=== PATIENT | male | born 1945 | race Caucasian/White ===

== ENCOUNTER 2016-08-29 08:04 | Emergency (ER) | payer MEDICARE, OTHER ==
--- NOTE | 2016-08-29 08:10 | EDM.PDOC ---
ED HPI GENERAL MEDICAL PROBLEM - General Chief Complaint: Chest Pain Stated Complaint: CHEST PAIN [id number] Time Seen by Provider: 08/29/16 08:09 Source of Information: Reports: Patient, Family, RN, RN Notes Reviewed History Limitations: Reports: No Limitations - History of Present Illness INITIAL COMMENTS - FREE TEXT/NARRATIVE: Pt from [place], [place] who came to [place] several days ago to go fishing arrives to ER by POV with report of onset of substernal chest and upper abdominal pain yesterday evening. Pt initially thought it was just indigestion because he normally eat a fairly low fat diet and last evening he had deep fried fish and onion rings. He took TUMS last evening with no relief. This morning the pain persisted and he has had continuous nausea with one episode of emesis. He felt mildly short of breath this morning so he took one Nitroglycerin 0.4mg SL which made him feel tired, but did not completely relieve his pain. He admits to significant increase in lower extremity edema over the past couple of days. Denies rapid or irregular heart rate, wheezing, cough, radiating pain, vomiting, diarrhea, constipation, fever, or chills. He has significant CAD Hx with NM, CABG in 2003, stents x12, and CHF. He also had surgery for colon cancer. 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, Nitroglycerin, Other Medication(s) Chest Pain Score (Numeric/FACES): 8 - Related Data Allergies Allergy/AdvReac Type Severity Reaction Status Date / Time No Known Allergies Allergy Verified 08/29/16 08:13 Home Meds: Home Meds Aspirin [Halfprin] 81 mg PO DAILY 08/29/16 [History] Clopidogrel [Plavix] 75 mg PO DAILY 08/29/16 [History] Docusate Sodium [Colace] 250 mg PO BID 08/29/16 [History] Dulaglutide [Trulicity] 0.75 mg SQ WEEKLY 08/29/16 [History] Ferrous Sulfate [Iron] 325 mg PO TID 08/29/16 [History] Furosemide [Lasix] 40 mg PO DAILY 08/29/16 [History] Loratadine [Claritin] 10 mg PO DAILY 08/29/16 [History] Metoprolol Succinate [Toprol XL] 25 mg PO BID 08/29/16 [History] Multivit-Min/FA/Lycopen/Lutein [Centrum Silver Men Tablet] 1 tab PO DAILY [History] Nitroglycerin [Nitrostat] 0.4 mg BUCCAL PRN 08/29/16 [History] [place]-3/DHA/Epa/Fish Oil [Fish Oil 1,400 MG Softgel] 1,400 mg PO DAILY 08/29/16 [History] Pantoprazole Sodium [Protonix] 40 mg PO DAILY 08/29/16 [History] Potassium Chloride 10 meq PO DAILY 08/29/16 [History] Ranitidine HCl [Zantac] 150 mg PO DAILY 08/29/16 [History] Ranolazine [Ranexa] 1,000 mg PO DAILY 08/29/16 [History] Spironolactone [Aldactone] 12.5 mg PO BID 08/29/16 [History] Tamsulosin [Flomax] 0.4 mg PO PCBREAKFAST 08/29/16 [History] amLODIPine Besylate [Norvasc] 2.5 mg PO BID 08/29/16 [History] atorvaSTATin [Lipitor] 10 mg PO BEDTIME 08/29/16 [History] Past Medical History Cardiovascular History: Reports: Angina, Bypass, CAD, Heart Failure, High Cholesterol, Hypertension, NM, Stents (x12) Endocrine/Metabolic History: Reports: Diabetes, Type II, Obesity/BMI 30+ Hematologic History: Reports: Anemia, Iron Deficiency Oncologic (Cancer) History: Reports: Colon - Past Surgical History Cardiovascular Surgical History: Reports: Coronary Artery Bypass, Coronary Artery Stent GI Surgical History: Reports: Appendectomy, Colon, Colonoscopy Social & Family History - Family History Family Medical History: Noncontributory - Alcohol Use Alcohol Use Frequency: Rarely - Recreational Drug Use Recreational Drug Use: No - Living Situation & Occupation Living situation: Reports: , with Spouse Occupation: Retired ED ROS GENERAL - Review of Systems Review Of Systems: ROS reveals no pertinent complaints other than HPI. ED EXAM, GENERAL - Physical Exam Exam: See Below Exam Limited By: No Limitations General Appearance: Alert, WD/WN, No Apparent Distress, Obese Eye Exam: Bilateral Eye: Normal Inspection Ears: Normal External Exam, Hearing Grossly Normal Nose: Normal Inspection, Normal Mucosa, No Blood Throat/Mouth: Normal Inspection, Normal Lips, Normal Teeth, Normal Gums, Normal Oropharynx, Normal Voice, No Airway Compromise Head: Atraumatic, Normocephalic Neck: Normal Inspection, Supple, Non-Tender, Full Range of Motion. No: Lymphadenopathy (L), Lymphadenopathy (R) Respiratory/Chest: No Respiratory Distress, Lungs Clear, No Accessory Muscle Use , Chest Non-Tender, Decreased Breath Sounds Cardiovascular: Normal Peripheral Pulses, Regular Rate, Rhythm, No Gallop, No Murmur, No Rub, Other (+3 pitting edema at B/L lower extremities to mid-thighs) GI/Abdominal: Normal Bowel Sounds, Soft (obese), No Distention, No Abnormal Bruit, Tender (mild generalized tenderness with acute moderately severe tenderness at the RUQ and epigastric region, well healed surgical scars). No: Guarding, Rigid, Rebound (Male) Exam: Deferred Rectal (Males) Exam: Deferred Back Exam: Normal Inspection, Full Range of Motion Extremities: Normal Range of Motion, Non-Tender, Normal Capillary Refill, Pedal Edema Neurological: Alert, Oriented, CN II-XII Intact, Normal Cognition, Normal Gait, No Motor/Sensory Deficits Psychiatric: Normal Affect, Normal Mood Skin Exam: Warm, Dry, Intact, Normal Color, No Rash EKG INTERPRETATION EKG Date: 08/29/16 Time: 08:10 Rhythm: Other (SR) Rate (Beats/Min): 57 [place]: LAD-Left [place] Deviation P-Wave: Present QRS: Other (inferior Q waves, late transition V5, V6) ST-T: Normal QT: Normal Comparison: NA - No Prior EKG Course - Vital Signs Last Recorded V/S: Last Vital Signs Temp 36.6 C 08/29/16 08:20 Pulse 58 L 08/29/16 08:20 Resp 18 08/29/16 08:20 BP 127/55 L 08/29/16 08:49 Pulse Ox 98 08/29/16 08:20 - Orders/Labs/Meds Orders: Active Orders 24 hr Category Date Time Status EKG 12 Lead [EKG Documentation Completion] [RC] STAT Care 08/29/16 08:15 Active Peripheral IV Care [RC] . DIRECTED Care 08/29/16 08:16 Active Nitroglycerin [Nitrostat] Med 08/29/16 08:14 Active 0.4 mg SL Q5M PRN Sodium Chloride 0.9% [Saline Flush] Med 08/29/16 08:15 Active 10 ml FLUSH ASDIRECTED PRN Peripheral IV Insertion Adult [OM.PC] Stat Oth 08/29/16 08:15 Ordered Medication Orders Nitroglycerin (Nitrostat) 0.4 mg SL Q5M PRN PRN Reason: Chest Pain Last Admin: 08/29/16 08:49 Dose: 0.4 mg Admin: 08/29/16 08:32 Dose: 0.4 mg Sodium Chloride (Saline Flush) 10 ml FLUSH ASDIRECTED PRN PRN Reason: Keep Vein Open Last Admin: 08/29/16 08:30 Dose: 10 ml Labs: Laboratory Tests 08/29/16 08/29/16 08/29/16 Range/Units 08:18 08:18 08:18 WBC 8.2 (5.0-10.0) 10^3/uL RBC 4.40 L (4.6-6.2) 10^6/uL Hgb 13.0 L (14.0-18.0) g/dL Hct 38.7 L (40.0-54.0) % MCV 88.0 (80-100) fL MCH 29.5 (27.0-34.0) pg MCHC 33.6 (33.0-35.0) g/dL Plt Count 199 (150-450) 10^3/uL Neut % (Auto) 63.2 (42.2-75.2) % Lymph % (Auto) 23.7 (20.5-50.1) % [place] % (Auto) 12.3 H (2-8) % Eos % (Auto) 0.4 L (1.0-3.0) % Baso % (Auto) 0.4 (0.0-1.0) % PT 10.0 (9.0-12.0) SEC INR 1.0 (0.9-1.2) APTT 25.5 (22.0-34.0) SEC Sodium 138 (135-145) mmol/L Potassium 3.9 (3.6-5.0) mmol/L Chloride 105 (101-111) mmol/L Carbon Dioxide 23.0 (21.0-31.0) mmol/L Anion Gap 13.9 BUN 23 H (7-18) mg/dL Creatinine 1.3 (0.6-1.3) mg/dL Est Cr Clr Drug Dosing 54.71 mL/min Estimated GFR (MDRD) 54 BUN/Creatinine Ratio 17.69 Glucose 163 H (74-105) mg/dL Calcium 8.9 (8.4-10.2) mg/dl Total Bilirubin 0.7 (0.2-1.0) mg/dL AST 20 (10-42) IU/L ALT 18 (10-60) IU/L Alkaline Phosphatase 66 (42-121) IU/L Troponin I < 0.02 (0.00-0.02) ng/ml B-Natriuretic Peptide 193 H (0-100) pg/ml Total Protein 7.2 (6.7-8.2) g/dl Albumin 3.6 (3.2-5.5) g/dl Globulin 3.6 Albumin/Globulin Ratio 1.00 Amylase 51 (28-100) U/L Lipase 25 (22-51) U/L Urine Color (YELLOW) Urine Appearance (CLEAR) Urine pH (5.0-9.0) Ur Specific [place] (1.005-1.030) Urine Protein (NEGATIVE) Urine Glucose (UA) (NEGATIVE) Urine Ketones (NEGATIVE) Urine Occult Blood (NEGATIVE) Urine Nitrite (NEGATIVE) Urine Bilirubin (NEGATIVE) Urine Urobilinogen (0.2-1.0) mg/dL Ur Leukocyte Esterase (NEGATIVE) Urine RBC /HPF Urine WBC (0-5/HPF) /HPF Ur Epithelial Cells /HPF Urine Bacteria (0-FEW/HPF) /HPF Urine Mucus /LPF 08/29/16 Range/Units 10:00 WBC (5.0-10.0) 10^3/uL RBC (4.6-6.2) 10^6/uL Hgb (14.0-18.0) g/dL Hct (40.0-54.0) % MCV (80-100) fL MCH (27.0-34.0) pg MCHC (33.0-35.0) g/dL Plt Count (150-450) 10^3/uL Neut % (Auto) (42.2-75.2) % Lymph % (Auto) (20.5-50.1) % [place] % (Auto) (2-8) % Eos % (Auto) (1.0-3.0) % Baso % (Auto) (0.0-1.0) % PT (9.0-12.0) SEC INR (0.9-1.2) APTT (22.0-34.0) SEC Sodium (135-145) mmol/L Potassium (3.6-5.0) mmol/L Chloride (101-111) mmol/L Carbon Dioxide (21.0-31.0) mmol/L Anion Gap BUN (7-18) mg/dL Creatinine (0.6-1.3) mg/dL Est Cr Clr Drug Dosing mL/min Estimated GFR (MDRD) BUN/Creatinine Ratio Glucose (74-105) mg/dL Calcium (8.4-10.2) mg/dl Total Bilirubin (0.2-1.0) mg/dL AST (10-42) IU/L ALT (10-60) IU/L Alkaline Phosphatase (42-121) IU/L Troponin I (0.00-0.02) ng/ml B-Natriuretic Peptide (0-100) pg/ml Total Protein (6.7-8.2) g/dl Albumin (3.2-5.5) g/dl Globulin Albumin/Globulin Ratio Amylase (28-100) U/L Lipase (22-51) U/L Urine Color Yellow (YELLOW) Urine Appearance Clear (CLEAR) Urine pH 6.0 (5.0-9.0) Ur Specific [place] 1.015 (1.005-1.030) Urine Protein Negative (NEGATIVE) Urine Glucose (UA) Negative (NEGATIVE) Urine Ketones Negative (NEGATIVE) Urine Occult Blood Negative (NEGATIVE) Urine Nitrite Negative (NEGATIVE) Urine Bilirubin Negative (NEGATIVE) Urine Urobilinogen 0.2 (0.2-1.0) mg/dL Ur Leukocyte Esterase Negative (NEGATIVE) Urine RBC Not seen /HPF Urine WBC Not seen (0-5/HPF) /HPF Ur Epithelial Cells Rare /HPF Urine Bacteria Not seen (0-FEW/HPF) /HPF Urine Mucus Not seen /LPF Meds: Medications Generic Name Dose Route Start Last Admin Trade Name Freq PRN Reason Stop Dose Admin Nitroglycerin 0.4 mg 08/29/16 08:14 08/29/16 08:49 Nitrostat SL 0.4 mg Q5M PRN Administration Chest Pain Sodium Chloride 10 ml 08/29/16 08:15 08/29/16 08:30 Saline Flush FLUSH 10 ml ASDIRECTED PRN Administration Keep Vein Open Discontinued Medications Generic Name Dose Route Start Last Admin Trade Name Freq PRN Reason Stop Dose Admin Aspirin 324 mg 08/29/16 08:14 08/29/16 08:32 Aspirin PO 08/29/16 08:15 324 mg ONETIME ONE Administration Furosemide 40 mg 08/29/16 09:12 08/29/16 09:16 Lasix IVPUSH 08/29/16 09:13 40 mg NOW ONE Administration Hydromorphone HCl 1 mg 08/29/16 11:44 Dilaudid IVPUSH 08/29/16 11:45 ONETIME ONE Ondansetron HCl 4 mg 08/29/16 11:44 Zofran IV 08/29/16 11:45 ONETIME ONE - Radiology Interpretation Free Text/Narrative:: CXR: no acute cardiopulmonary process per Rad. report. CT Abd/Pelvis: large/distended gallbladder with a calcified dependent stone but not in the neck/duct. Rt hemicolectomy. Sigmoid diverticulosis, see Rad. report. Gallbladder US: distended GB w/sludge, no wall thickening, no pericystic fluid, no duct dilatation, see Rad. report. Departure - Departure Time of Disposition: 11:42 Disposition: DC/Tfer to [facility] 02 Reason for Transfer *Q: Primary PCI Indicated Condition: Undetermined Clinical Impression: Biliary colic Abdominal pain Qualifiers: Abdominal location: upper abdomen, unspecified Qualified Code(s): R10.10 - Upper abdominal pain, unspecified Chest pain Qualifiers: Chest pain type: unspecified Qualified Code(s): R07.9 - Chest pain, unspecified Referrals: PCP,Not In Area [Primary Care Provider] - Forms: ED Department Discharge, Interfacility Transfer EMTALA - My Orders Last 24 Hours: My Active Orders 08/29/16 08:14 Nitroglycerin [Nitrostat] 0.4 mg SL Q5M PRN 08/29/16 08:15 EKG 12 Lead [EKG Documentation Completion] [RC] STAT Sodium Chloride 0.9% [Saline Flush] 10 ml FLUSH ASDIRECTED PRN Peripheral IV Insertion Adult [OM.PC] Stat 08/29/16 08:16 Peripheral IV Care [RC] . DIRECTED - Assessment/Plan Last 24 Hours: My Active Orders 08/29/16 08:14 Nitroglycerin [Nitrostat] 0.4 mg SL Q5M PRN 08/29/16 08:15 EKG 12 Lead [EKG Documentation Completion] [RC] STAT Sodium Chloride 0.9% [Saline Flush] 10 ml FLUSH ASDIRECTED PRN Peripheral IV Insertion Adult [OM.PC] Stat 08/29/16 08:16 Peripheral IV Care [RC] . DIRECTED
[2016-08-29] MEDS ORDERED: Aspirin 81 MG Tab.Chew PO ONE (08:14)
[2016-08-29] MEDS ORDERED: Sodium Chloride 0.9% 10 ML Syringe FLUSH PRN (08:15)
[2016-08-29] MEDS: Nitroglycerin 0.4 MG Tab.SL SL PRN ×2 (08:32→08:49)
[2016-08-29 08:48] LABS: CHLORIDE,CL 105 mmol/L (101-111); SODIUM,NA 138 mmol/L (135-145)
[2016-08-29 08:49] VITALS: BP 127/55
[2016-08-29] MEDS ORDERED: Furosemide 40 MG/4 ML VIAL IVPUSH ONE (09:12)
--- NOTE | 2016-08-29 09:31 | CR ---
Clinical history: 71-year-old male with chest pain. Interpretation: Sternotomy wires and external court monitor leads (surgical "dart" right shoulder). Cardiac silhou ette prominent but normal for AP technique and no current cephalization of vascular flow, signs of a lveolar edema or dependent pleural effusion. Pericardial fat on the left. No lung mass, hilar lymphadenopathy or focal lobar pneumonia. No pneumothorax. CONCLUSION: No acute cardiopulmonary abnormality.
--- NOTE | 2016-08-29 10:03 | CT ---
CLINICAL HISTORY: 71 year-old 270 pound hypertensive, diabetic male with history of colon cancer zayda malina, "kidney stones", appendectomy and now abdominal pain with mild distention. SCAN TECHNIQUE: Volume acquisition of data from the abdomen and pelvis obtained on an emergency basi s without oral or IV contrast (elevated serum creatinine) while the patient was lying supine on the Siemens multislice CT scanner [facility]. All data archived in [employer] PACS system for storage, reformatting and study. INTERPRETATION: 1. Scattered atheromatous calcifications along the course of normal caliber aortoiliac vessels, i.e. , no aneurysm or dissection. 2. Distended gallbladder with tiny dependent intraluminal (wall?) calcification (axial slice #39; co xiang slice #30). Unenhanced liver unremarkable without appreciable dilatation of the intra-extrahep atic biliary ducts. 3. Scattered small cortical cysts both kidneys. No sign of nephrolithiasis or obstructive uropathy. Symmetrically distended urinary bladder unremarkable (homogeneously dense round prostate gland and s ymmetric normal-appearing seminal vesicles. 4. Diverticula descending left and sigmoid colon without associated signs of inflammation (right col on resection). 5. No pelvic or abdominal mass lesion, signs of mesenteric or retroperitoneal lymphadenopathy, infla mmatory "dirty" peritoneal fat, mechanical bowel obstruction, ascites or free intraperitoneal air. 6. Stomach, spleen, pancreas and adrenal glands unremarkable. (Small amount of food contamination fu ndus but stomach is not abnormally distended and the body stomach is empty). Patchy atelectasis/fibr osis left lung base. 7. Multilevel mid and lower lumbar disc disease with arthritic spondylosis osteopenic spine. No frac tures or dislocation. CONCLUSION: Probable cholelithiasis (suggest ultrasound). Right hemicolectomy and sigmoid diverticul osis. No signs of recurrent or metastatic malignancy. Multilevel lumbar disc disease and atheromatous calcifications normal caliber abdominal aorta.
--- NOTE | 2016-08-29 10:58 | US ---
Clinical history: 71-year-old male with "distended gallbladder " and "tiny gallstone" on CT exam. Re evaluate please. Interpretation: Gallbladder is distended right upper quadrant but the wall is uniformly thin without sign of pericys tic fluid i.e. no current evidence of acute cholecystitis. No mucosal wall polyps. Subtle mobile dependent intraluminal echogenic "sludge" but discrete intraluminal gallstone not appr eciated at this time. Homogeneous density liver where visualized without sign of intra/extra hepatic biliary duct dilatati on. No ascites.
[2016-08-29] MEDS ORDERED: Ondansetron 4 MG/2 ML SDV IV ONE (11:44)
[2016-08-29] MEDS ORDERED: HYDROmorphone 1 MG/ML Syringe IVPUSH ONE (11:44)
--- NOTE | 2016-08-31 09:45 | EKG ---
08/29/2016- REJI GARZA - A 12-lead EKG shows normal sinus rhythm with heart rate of 57. No significant ST elevation or ST depression noted on this 12-lead EKG. Nonspecific ST-T wave changes noted on lead V2 and V3. [facility] /[id number]
== END 2016-08-29 11:35 ==
LOC: DL.ED 08:04
DX: K80.50 Calculus of bile duct without cholangitis or cholecystitis without obstruction (principal); R07.9 Chest pain, unspecified; I25.10 Atherosclerotic heart disease of native coronary artery without angina pectoris; I25.2 Old myocardial infarction; I50.9 Heart failure, unspecified; E11.9 Type 2 diabetes mellitus without complications; D50.9 Iron deficiency anemia, unspecified; Z95.1 Presence of aortocoronary bypass graft; Z95.5 Presence of coronary angioplasty implant and graft; Z79.899 Other long term (current) drug therapy; Z79.82 Long term (current) use of aspirin; Z85.038 Personal history of other malignant neoplasm of large intestine
CPT/HCPCS: 36415; 71010; 74176; 76705; 80053; 81001; 82150; 83690; 83880; 84484; 85025; 85610; 85730; 93005; 93010; 96374; 96375; 99285; A9270; J1170; J1940; J2405; J7050

== ENCOUNTER 2016-09-01 01:25 | Emergency (ER) | payer MEDICARE, OTHER ==
[2016-09-01] MEDS ORDERED: Aspirin 81 MG Tab.Chew PO ONE (01:38)
[2016-09-01] MEDS ORDERED: Furosemide 40 MG/4 ML VIAL IVPUSH ONE (01:38)
--- NOTE | 2016-09-01 02:13 | EDM.PDOC ---
[id number]: SHORTNESS OF BREATH Time Seen by Provider: 09/01/16 01:36 Source of Information: Reports: Patient History Limitations: Reports: No Limitations - History of Present Illness INITIAL COMMENTS - FREE TEXT/NARRATIVE: c/o SOB increasing since this afternoon after return home from hospital at 5pm. LE edema and cough. Recent tx from this facility to [facility] with dilated GB and abdominal pain. New antibiotics started this lorne flagyl and Cipro. Plavix stopped in prep for probable GB surgery when he returns home. Pain had improved while in hospital and multiple previous cardiac events and underlying health status. Surgery was not deemed critical and could have when he returned to his local area. Onset: Today Face Pain Score (Numeric/FACES): 8 - Related Data Allergies Allergy/AdvReac Type Severity Reaction Status Date / Time tramadol AdvReac Other Verified 09/01/16 03:52 Home Meds: Home Meds Aspirin [Halfprin] 81 mg PO DAILY 08/29/16 [History] Docusate Sodium [Colace] 200 mg PO BID 08/29/16 [History] Dulaglutide [Trulicity] 0.75 mg SQ WEEKLY 08/29/16 [History] Ferrous Sulfate [Iron] 325 mg PO TID 08/29/16 [History] Furosemide [Lasix] 40 mg PO DAILY 08/29/16 [History] Loratadine [Claritin] 10 mg PO DAILY 08/29/16 [History] Metoprolol Succinate [Toprol XL] 25 mg PO BID 08/29/16 [History] Multivit-Min/FA/Lycopen/Lutein [Centrum Silver Men Tablet] 1 tab PO DAILY [History] Nitroglycerin [Nitrostat] 0.4 mg SL ASDIRECTED PRN 08/29/16 [History] [place]-3/DHA/Epa/Fish Oil [Fish Oil 1,400 MG Softgel] 1,000 mg PO DAILY 08/29/16 [History] Pantoprazole Sodium [Protonix] 40 mg PO DAILY 08/29/16 [History] Potassium Chloride 10 meq PO DAILY 08/29/16 [History] Ranitidine HCl [Zantac] 150 mg PO DAILY 08/29/16 [History] Ranolazine [Ranexa] 1,000 mg PO DAILY 08/29/16 [History] Spironolactone [Aldactone] 12.5 mg PO BID 08/29/16 [History] Tamsulosin [Flomax] 0.4 mg PO DAILY 08/29/16 [History] amLODIPine Besylate [Norvasc] 2.5 mg PO BID 08/29/16 [History] atorvaSTATin [Lipitor] 10 mg PO BEDTIME 08/29/16 [History] Acetaminophen/oxyCODONE [Percocet 325-5 MG] 1 tab PO Q4H PRN 09/01/16 [History] Ciprofloxacin HCl [Cipro] 500 mg PO BID 09/01/16 [History] metroNIDAZOLE [Flagyl] 500 mg PO BID 09/01/16 [History] Past Medical History HEENT History: Reports: Impaired Vision Cardiovascular History: Reports: Angina, Bypass, CAD, Heart Failure, High Cholesterol, Hypertension, [place], Stents (x12) Genitourinary History: Reports: Prostate Disorder Endocrine/Metabolic History: Reports: Diabetes, Type II, Obesity/BMI 30+ Hematologic History: Reports: Anemia, Iron Deficiency Oncologic (Cancer) History: Reports: Colon - Past Surgical History Cardiovascular Surgical History: Reports: Coronary Artery Bypass, Coronary Artery Stent GI Surgical History: Reports: Appendectomy, Colon, Colonoscopy Social & Family History - Family History Family Medical History: Noncontributory - Tobacco Use Smoking Status *Q: Former Smoker Used Tobacco, but Quit: Yes Month Tobacco Last Used: ? Tobacco Use Comment: quit 30 years ago - Caffeine Use Caffeine Use: Reports: Soda - Recreational Drug Use Recreational Drug Use: No - Living Situation & Occupation Living situation: Reports: , with Spouse Occupation: Retired ED ROS GENERAL - Review of Systems Review Of Systems: See Below Constitutional: Reports: No Symptoms, Fatigue HEENT: Reports: No Symptoms Respiratory: Reports: Shortness of Breath, Cough. Denies: Wheezing Cardiovascular: Reports: Dyspnea on Exertion, Edema, Orthopnea. Denies: Chest Pain, Blood Pressure Problem Endocrine: Reports: No Symptoms GI/Abdominal: Reports: No Symptoms : Reports: No Symptoms Skin: Reports: No Symptoms ED EXAM, GENERAL - Physical Exam Exam: See Below Exam Limited By: No Limitations General Appearance: Alert Eye Exam: Bilateral Eye: EOMI Ears: Normal External Exam Nose: Normal Inspection Throat/Mouth: Normal Inspection Head: Atraumatic, Normocephalic Neck: Normal Inspection Respiratory/Chest: Wheezing (scattered fine end phase). No: No Respiratory Distress Cardiovascular: Normal Peripheral Pulses (ocassional PAC), Regular Rate, Rhythm , No Murmur. No: No Edema (2+) GI/Abdominal: Normal Bowel Sounds, No Distention. No: Tender (mild tenderness RUQ with deep palpation ) Back Exam: Normal Inspection, Full Range of Motion Extremities: Normal Range of Motion. No: No Pedal Edema Neurological: Alert, Oriented, Normal Cognition, No Motor/Sensory Deficits Psychiatric: Normal Affect Skin Exam: Warm, Dry, Intact, Normal Color Course - Vital Signs Last Recorded V/S: Last Vital Signs Temp 99.4 F 09/01/16 03:40 Pulse 90 09/01/16 03:40 Resp 26 H 09/01/16 03:40 BP 100/79 09/01/16 03:40 Pulse Ox 95 09/01/16 03:40 - Orders/Labs/Meds Orders: Active Orders 24 hr Category Date Time Status EKG 12 Lead [EKG Documentation Completion] [RC] URGENT Care 09/01/16 01:31 Active Labs: Laboratory Tests 09/01/16 09/01/16 09/01/16 Range/Units 01:50 01:50 01:50 WBC 7.8 (5.0-10.0) 10^3/uL RBC 4.05 L (4.6-6.2) 10^6/uL Hgb 12.2 L (14.0-18.0) g/dL Hct 36.2 L (40.0-54.0) % MCV 89.4 (80-100) fL MCH 30.1 (27.0-34.0) pg MCHC 33.7 (33.0-35.0) g/dL Plt Count 132 L (150-450) 10^3/uL Neut % (Auto) 71.6 (42.2-75.2) % Lymph % (Auto) 13.9 L (20.5-50.1) % [place] % (Auto) 13.5 H (2-8) % Eos % (Auto) 0.6 L (1.0-3.0) % Baso % (Auto) 0.4 (0.0-1.0) % PT (9.0-12.0) SEC INR (0.9-1.2) D-Dimer, Quantitative (0-400) ng/mL ABG pH (7.35-7.45) ABG pCO2 (35-45) mmHg ABG pO2 (70-100) mmHg ABG HCO3 (22-26) mmol/L ABG O2 Saturation (95-100) % ABG Base Excess ((-2)-(+3)) mmol/L O2 Delivery Device Sodium 136 (135-145) mmol/L Potassium 3.4 L (3.6-5.0) mmol/L Chloride 105 (101-111) mmol/L Carbon Dioxide 19.0 L (21.0-31.0) mmol/L Anion Gap 15.4 BUN 15 (7-18) mg/dL Creatinine 1.5 H (0.6-1.3) mg/dL Est Cr Clr Drug Dosing 47.41 mL/min Estimated GFR (MDRD) 46 BUN/Creatinine Ratio 10.00 Glucose 151 H (74-105) mg/dL Lactic Acid (0.5-2.2) mmol/L Calcium 7.9 L (8.4-10.2) mg/dl Total Bilirubin 1.2 H (0.2-1.0) mg/dL AST 17 (10-42) IU/L ALT 15 (10-60) IU/L Alkaline Phosphatase 62 (42-121) IU/L CK-MB (CK-2) 0.90 (0.4-4.7) ng/mL Troponin I 0.04 H* (0.00-0.02) ng/ml B-Natriuretic Peptide 1040 H (0-100) pg/ml Total Protein 6.5 L (6.7-8.2) g/dl Albumin 2.8 L (3.2-5.5) g/dl Globulin 3.7 Albumin/Globulin Ratio 0.76 Amylase 40 (28-100) U/L Lipase 28 (22-51) U/L 09/01/16 09/01/16 09/01/16 Range/Units 01:50 01:50 01:50 WBC (5.0-10.0) 10^3/uL RBC (4.6-6.2) 10^6/uL Hgb (14.0-18.0) g/dL Hct (40.0-54.0) % MCV (80-100) fL MCH (27.0-34.0) pg MCHC (33.0-35.0) g/dL Plt Count (150-450) 10^3/uL Neut % (Auto) (42.2-75.2) % Lymph % (Auto) (20.5-50.1) % [place] % (Auto) (2-8) % Eos % (Auto) (1.0-3.0) % Baso % (Auto) (0.0-1.0) % PT 10.1 (9.0-12.0) SEC INR 1.0 (0.9-1.2) D-Dimer, Quantitative 3090 H (0-400) ng/mL ABG pH (7.35-7.45) ABG pCO2 (35-45) mmHg ABG pO2 (70-100) mmHg ABG HCO3 (22-26) mmol/L ABG O2 Saturation (95-100) % ABG Base Excess ((-2)-(+3)) mmol/L O2 Delivery Device Sodium (135-145) mmol/L Potassium (3.6-5.0) mmol/L Chloride (101-111) mmol/L Carbon Dioxide (21.0-31.0) mmol/L Anion Gap BUN (7-18) mg/dL Creatinine (0.6-1.3) mg/dL Est Cr Clr Drug Dosing mL/min Estimated GFR (MDRD) BUN/Creatinine Ratio Glucose (74-105) mg/dL Lactic Acid 1.0 (0.5-2.2) mmol/L Calcium (8.4-10.2) mg/dl Total Bilirubin (0.2-1.0) mg/dL AST (10-42) IU/L ALT (10-60) IU/L Alkaline Phosphatase (42-121) IU/L CK-MB (CK-2) (0.4-4.7) ng/mL Troponin I (0.00-0.02) ng/ml B-Natriuretic Peptide (0-100) pg/ml Total Protein (6.7-8.2) g/dl Albumin (3.2-5.5) g/dl Globulin Albumin/Globulin Ratio Amylase (28-100) U/L Lipase (22-51) U/L 09/01/16 Range/Units 02:35 WBC (5.0-10.0) 10^3/uL RBC (4.6-6.2) 10^6/uL Hgb (14.0-18.0) g/dL Hct (40.0-54.0) % MCV (80-100) fL MCH (27.0-34.0) pg MCHC (33.0-35.0) g/dL Plt Count (150-450) 10^3/uL Neut % (Auto) (42.2-75.2) % Lymph % (Auto) (20.5-50.1) % [place] % (Auto) (2-8) % Eos % (Auto) (1.0-3.0) % Baso % (Auto) (0.0-1.0) % PT (9.0-12.0) SEC INR (0.9-1.2) D-Dimer, Quantitative (0-400) ng/mL ABG pH 7.46 H (7.35-7.45) ABG pCO2 30 L (35-45) mmHg ABG pO2 64 L (70-100) mmHg ABG HCO3 20.9 L (22-26) mmol/L ABG O2 Saturation 92 L (95-100) % ABG Base Excess -2 ((-2)-(+3)) mmol/L O2 Delivery Device Room air Sodium (135-145) mmol/L Potassium (3.6-5.0) mmol/L Chloride (101-111) mmol/L Carbon Dioxide (21.0-31.0) mmol/L Anion Gap BUN (7-18) mg/dL Creatinine (0.6-1.3) mg/dL Est Cr Clr Drug Dosing mL/min Estimated GFR (MDRD) BUN/Creatinine Ratio Glucose (74-105) mg/dL Lactic Acid (0.5-2.2) mmol/L Calcium (8.4-10.2) mg/dl Total Bilirubin (0.2-1.0) mg/dL AST (10-42) IU/L ALT (10-60) IU/L Alkaline Phosphatase (42-121) IU/L CK-MB (CK-2) (0.4-4.7) ng/mL Troponin I (0.00-0.02) ng/ml B-Natriuretic Peptide (0-100) pg/ml Total Protein (6.7-8.2) g/dl Albumin (3.2-5.5) g/dl Globulin Albumin/Globulin Ratio Amylase (28-100) U/L Lipase (22-51) U/L Meds: Medications Discontinued Medications Generic Name Dose Route Start Last Admin Trade Name Paulq PRN Reason Stop Dose Admin Aspirin 324 mg 09/01/16 01:38 09/01/16 01:44 Aspirin PO 09/01/16 01:39 324 mg ONETIME ONE Administration Furosemide 40 mg 09/01/16 01:38 09/01/16 01:47 Lasix IVPUSH 09/01/16 01:39 40 mg NOW ONE Administration Heparin Sodium (Porcine) 5,000 units 09/01/16 02:41 09/01/16 03:13 Heparin Sodium IVPUSH 09/01/16 02:42 5,000 units ONETIME ONE Administration Heparin Sodium/Dextrose 25,000 units in 500 mls @ 29.175 mls/hr 09/01/16 02: 45 09/01/16 03:16 Heparin 25,000 Units In D5w 500 Ml IV 18 units/kg/hr TITRATE PHILLIP 43.763 mls/hr Protocol Administration 12 UNITS/KG/HR Iopamidol 100 ml 09/01/16 02:41 09/01/16 03:18 Isovue-370 (76%) IVPUSH 09/01/16 02:42 100 ml ONETIME ONE Administration - Radiology Interpretation Free Text/Narrative:: CXR bilateral atelectasis, - Re-Assessments/Exams Free Text/Narrative Re-Assessment/Exam: 09/01/16 09:49 Patient and family informed of lab and xray, Discussed potential risks and ptential causes of D-Dimer and troponin. Agreeable to Chest Ct to r/o PE as patient not currently on Plavix. TC consult Dr Mckinley regarding patient. Due to complex medical problems recommend transfer back to [facility]. Dr. Meléndez accepting. requesting results of CT be forwarded when available. Tx via [facility]AS with Heparin gtt initiated. Remains pain free. Extertional dyspnea improved 3-4 words. Comfortable with HOB 45 degrees. Sats on 1L mid to upper 90's. Underlying NSR. Departure - Departure Time of Disposition: 04:15 Disposition: DC/Tfer to Acute Hospital 02 Condition: Fair Clinical Impression: Elevated troponin, Elevated d-dimer Congestive heart failure Qualifiers: Congestive heart failure type: unspecified congestive heart failure type Congestive heart failure chronicity: unspecified congestive heart failure chronicity Qualified Code(s): I50.9 - Heart failure, unspecified Abdominal pain Qualifiers: Abdominal location: upper abdomen, unspecified Qualified Code(s): R10.10 - Upper abdominal pain, unspecified CAD (coronary artery disease) Qualifiers: Coronary Disease-Associated Artery/Lesion type: unspecified vessel or lesion type [place] vs. transplanted heart: [place] heart Associated angina: without angina Qualified Code(s): I25.10 - Atherosclerotic heart disease of [place] coronary artery without angina pectoris - Discharge Information Referrals: PCP,None [Primary Care Provider] - Forms: ED Department Discharge - My Orders Last 24 Hours: My Active Orders 09/01/16 01:31 EKG 12 Lead [EKG Documentation Completion] [RC] URGENT - Assessment/Plan Last 24 Hours: My Active Orders 09/01/16 01:31 EKG 12 Lead [EKG Documentation Completion] [RC] URGENT
[2016-09-01] MEDS ORDERED: Heparin Sodium 5,000 Units/ML Vial IVPUSH ONE (02:41)
[2016-09-01] MEDS ORDERED: Iopamidol 755 Mg/ML 100 ML Bottle IVPUSH ONE (02:41)
[2016-09-01 02:43] LABS: O2 DELIVERY DEVICE ROOM AIR
[2016-09-01 02:45] LABS: BASE EXCESS ARTERIAL -2 mmol/L ((-2)-(+3)); BICARBONATE,ARTERIAL 20.9 mmol/L (22-26); O2 SATURATION ARTERIAL 92 % (95-100); PCO2 ARTERIAL 30 mmHg (35-45); PO2 ARTERIAL 64 mmHg (70-100)
[2016-09-01] MEDS ORDERED: Heparin Sodium/D5W 25,000 UNITS/500 ML BAG IV SCH (02:45)
[2016-09-01 03:40] VITALS: BP 100/79
--- NOTE | 2016-09-01 17:53 | EKG ---
09/01/2016 - REJI GARZA I reviewed the EKG and agree with the machine reading. [facility] /[id number]
== END 2016-09-01 04:15 ==
LOC: DL.ED 01:25
DX: I11.0 Hypertensive heart disease with heart failure (principal); I50.9 Heart failure, unspecified; I25.10 Atherosclerotic heart disease of native coronary artery without angina pectoris; R10.10 Upper abdominal pain, unspecified; E11.9 Type 2 diabetes mellitus without complications; E66.9 Obesity, unspecified; I25.2 Old myocardial infarction; Z95.1 Presence of aortocoronary bypass graft; E78.00 Pure hypercholesterolemia, unspecified; Z95.5 Presence of coronary angioplasty implant and graft; Z90.49 Acquired absence of other specified parts of digestive tract; Z87.891 Personal history of nicotine dependence; Z86.2 Personal history of diseases of the blood and blood-forming organs and certain disorders involving the immune mechanism; Z79.82 Long term (current) use of aspirin; Z79.899 Other long term (current) drug therapy; Z88.5 Allergy status to narcotic agent
CPT/HCPCS: 36415; 36600; 71010; 71260; 80053; 82150; 82553; 82803; 83605; 83690; 83880; 84484; 85025; 85379; 85610; 93005; 96365; 96375; 96376; 99285; A9270; J1644; J1940; Q9967; 93010